=== PATIENT | female | born 1985 | race Caucasian/White ===

== ENCOUNTER 2020-12-18 15:30 | Observation (INO) | payer MEDICAID ==
[~2020-12-18] VITALS: Ht 149.9 cm; Wt 65.3 kg
[2020-12-18] MEDS ORDERED: PNV1TABL76 MT (18:31)
== END 2020-12-18 18:50 | disposition home or self-care (01) ==
LOC: 8 EST LDRP 15:30
PROVIDERS: ADMIT Specialist; ATTEND Specialist
DX: O46.92 Antepartum hemorrhage, unspecified, second trimester (principal); O09.522 Supervision of elderly multigravida, second trimester; Z3A.24 24 weeks gestation of pregnancy
CPT/HCPCS: 59025; 76805; G0378; 99281

== ENCOUNTER 2020-12-29 09:09 | Observation (INO) | payer MEDICAID ==
[~2020-12-29] VITALS: Ht 149.9 cm; Wt 65.3 kg
[~2020-12-29 09:09] MED LIST: PNV1TABL76 MT
[2020-12-29 12:25] LABS: BASOPHILS % 0.7 % (0.0-2.0); EOSINOPHILS % 0.6 % (0.0-5.0); HEMATOCRIT. 32.8 % (36.0-48.0); HEMOGLOBIN. 11.3 g/dL (12.0-16.0); LYMPHOCYTES % 18.3 % (20.0-50.0); MEAN CORPUSCULAR VOLUME 89.8 fL (81.0-99.0); MEAN PLATELET VOLUME 9.3 fl (7.4-10.4); MONOCYTES % 6.9 % (2.0-8.0); NEUTROPHILS % 73.5 % (40.0-76.0); PLATELET 248 x1000/uL (130-400); RED BLOOD CELL COUNT 3.65 mill/uL (4.2-5.4); RED CELL DISTRIBUTION WIDTH 13.4 % (11.6-14.6)
[2020-12-29 12:52] LABS: CLARITY URINE CLEAR (CLEAR); COLOR URINE YELLOW (YELLOW); KETONES URINE NEGATIVE (NEGATIVE); LEUKOCYTE ESTERASE URINE 3+ (NEGATIVE); NITRITE URINE NEGATIVE (NEGATIVE); OCCULT BLOOD URINE 3+ (NEGATIVE); PH URINE 6.5 (4.5-8.0); PROTEIN URINE NEGATIVE (NEGATIVE); SPECIFIC GRAVITY URINE 1.013 (1.005-1.030); UROBILINOGEN URINE 0.2 E.U./dL (0.2-1.0)
== END 2020-12-29 15:15 | disposition home or self-care (01) ==
LOC: 8 EST LDRP 09:09
PROVIDERS: ADMIT Obstetrics & Gynecology; ATTEND Obstetrics & Gynecology
DX: O46.92 Antepartum hemorrhage, unspecified, second trimester (principal); Z3A.25 25 weeks gestation of pregnancy
CPT/HCPCS: 36415; 76805; 81003; 85025; G0378; 99281